=== PATIENT | female | born 1975 | race Caucasian/White ===

== ENCOUNTER 2022-05-28 15:19 | Outpatient (REF) | payer OTHER, SELFPAY | END 2022-05-28 15:20 | disposition home or self-care (01) | LOC: LBN 15:19 | PROVIDERS: PCP Nurse Practitioner Family; Visit Provider Nurse Practitioner Family | DX: N39.8 Other specified disorders of urinary system (principal); R82.998 Other abnormal findings in urine | CPT/HCPCS: 87086 ==

== ENCOUNTER 2024-01-17 08:40 | Outpatient (CLI) | payer BC, SELFPAY ==
[2024-01-17 09:48] LABS: FREE T4 0.74 ng/dL (0.76-1.46); TSH 1.98 uIU/Ml (0.36-3.74)
[2024-01-17 10:25] LABS: Ferritin 4 ng/mL (8-252); Vitamin B12 406 pg/mL (193-986)
[2024-01-17 10:33] LABS: Iron 20 ug/dL (50-170)
[2024-01-17 18:29] LABS: T3,Free 3.7 pg/mL (2.8-5.3)
[2024-01-17 19:05] LABS: Estradiol 102 pg/mL (See Note); Progesterone 0.3 ng/mL (See Table)
[2024-01-20 15:59] LABS: HLA-B27 Result Negative
[2024-02-21 09:23] LABS: Misc Referral (MAYO) See Comments
== END 2024-01-17 08:41 | disposition home or self-care (01) ==
PROVIDERS: PCP Nurse Practitioner Family; Referring Provider Naturopath; Visit Provider Naturopath
DX: N84.0 Polyp of corpus uteri (principal); N84.1 Polyp of cervix uteri; N92.4 Excessive bleeding in the premenopausal period; Z80.49 Family history of malignant neoplasm of other genital organs; G43.809 Other migraine, not intractable, without status migrainosus; M54.2 Cervicalgia; Z82.69 Family history of other diseases of the musculoskeletal system and connective tissue; R59.0 Localized enlarged lymph nodes
CPT/HCPCS: 36415; 81435; 86812; 82607; 82670; 82728; 83540; 84144; 84439; 84443; 84481

== ENCOUNTER 2024-05-12 02:25 | Outpatient (CLI) | payer BC, SELFPAY ==
[2024-05-12 12:48] LABS: Iron 63 ug/dL (50-170)
[2024-05-12 13:14] LABS: Ferritin 28 ng/mL (8-252); TSH 3.12 uIU/mL (0.36-3.74)
[2024-05-12 13:33] LABS: FREE T4 0.76 ng/dL (0.76-1.46)
== END 2024-05-12 02:26 | disposition home or self-care (01) ==
PROVIDERS: PCP Nurse Practitioner Family; Visit Provider Naturopath
DX: D50.9 Iron deficiency anemia, unspecified (principal); E03.9 Hypothyroidism, unspecified; R59.0 Localized enlarged lymph nodes
CPT/HCPCS: 36415; 82728; 83540; 84439; 84443

== ENCOUNTER 2024-05-18 13:54 | Outpatient (CLI) | payer BC, SELFPAY ==
[2024-05-18 12:35] LABS: Kit/Specimen SENT
== END 2024-05-18 13:55 | disposition home or self-care (01) ==
LOC: LBO 13:54
PROVIDERS: PCP Nurse Practitioner Family; Visit Provider Naturopath
DX: Z01.812 Encounter for preprocedural laboratory examination (principal)
CPT/HCPCS: 36415